=== PATIENT | female | born 1955 | race Caucasian/White ===

== ENCOUNTER → 2016-05-16 | Outpatient (CLI) | payer OTHER ==
[~2016-05-16] MED LIST: HYDROCHLOROTH12.5 M1 PO
== END | disposition home or self-care (01) ==
LOC: NUC 12:36
DX: R10.11 Right upper quadrant pain (principal)
CPT/HCPCS: 78227; A9510; J2805

== ENCOUNTER 2016-08-26 07:25 | Emergency (ER) | payer OTHER ==
[~2016-08-26] VITALS: Ht 160 cm; Wt 104.9 kg
[2016-08-26 08:22] LABS: EOSINOPHIL (%) 0.8 % (0-5); EOSINOPHIL COUNT 0.1 K/uL (0-0.3); HEMATOCRIT 43.2 % (36.0-46.0); IMMATURE GRANULOCYTE (%) 0.4 % (0.0-0.7); INSTRUMENT ABS NEUTROPHIL CT 8.2 K/uL; LYMPHOCYTE COUNT 1.6 K/uL (1.0-2.8); MCH 29.9 PG (29.0-34.0); MCHC 33.8 G/DL (30.0-36.0); MCV 88.3 FL (83-99); MEAN PLAT.VOLUME 9.9 uM^3 (9.5-12.4); MONOCYTE (%) 7.7 % (3-12); MONOCYTE COUNT 0.8 K/uL (0-0.8); NEUTROPHIL (%) 75.9 % (45-76); NEUTROPHIL COUNT 8.2 K/uL (1.8-6.4); PLATELET COUNT 171 K/uL (156-360); RBC DIS.WIDTH-CV 12.5 % (11.8-14.6); RBC DIS.WIDTH-SD 40.1 % (39-53); RED BLOOD COUNT 4.89 M/uL (3.80-5.20); WHITE BLOOD COUNT 10.8 K/uL (4.1-10.2)
[2016-08-26 08:36] LABS: CHLORIDE 106 mEq/L (99-109); SODIUM 141 mEq/L (136-147)
[2016-08-26 08:39] LABS: GLUCOSE 102 mg/dL (70-99)
[2016-08-26 08:40] LABS: ANION GAP 10 MEQ/L (2-14)
[2016-08-26 08:41] LABS: TOTAL BILIRUBIN 0.6 mg/dL (0.0-1.0)
[2016-08-26 08:42] LABS: ALKALINE PHOSPHATASE 84 IU/L (3-129); GFR ESTIMATE (CALCULATED) > 59 mL/min/
[2016-08-26 08:44] LABS: UREA NITROGEN (BUN) 12 mg/dL (9-23)
[2016-08-26 09:29] LABS: ADD MIUA? YES; BILIRUBIN NEGATIVE; BLOOD NEGATIVE; COLOR YELLOW ((YELLOW)); GLUCOSE (STRIP) NEGATIVE; KETONES NEGATIVE; LEUKOCYTES TRACE; NITRITE NEGATIVE; PROTEIN (STRIP) NEGATIVE; SPECIFIC GRAVITY 1.012 (1.000-1.030); UROBILINOGEN 0.2 MG/DL (0.2-1.0)
[2016-08-26 09:48] LABS: BACTERIA NONE SEEN /HPF; EPITHELIAL CELLS 1+ /HPF; GRANULAR CASTS 0-5 /LPF; MUCUS TRACE /LPF; RED BLOOD CELLS 0-5 /HPF (0-5); UCUL ADDED? NO
[2016-08-26 10:20] VITALS: BP 119/67
[2016-08-26] MEDS ORDERED: CIPRO500 MG PO (10:24)
[2016-08-26] MEDS ORDERED: PERCOCET 5/31 TABLET PO (10:24)
[2016-08-26] MEDS ORDERED: FLAGYL500 MG PO (10:24)
[2016-08-26] MEDS ORDERED: ZOFRAN ODT4 MG PO (10:24)
== END 2016-08-26 10:59 | disposition home or self-care (01) ==
LOC: EME 07:25
PROVIDERS: Emergency Medicine
DX: K57.32 Diverticulitis of large intestine without perforation or abscess without bleeding (principal); Z87.891 Personal history of nicotine dependence; I10 Essential (primary) hypertension; Z88.1 Allergy status to other antibiotic agents; Z88.5 Allergy status to narcotic agent; Z88.0 Allergy status to penicillin
CPT/HCPCS: 74177; 80053; 81003; 85025; 86900; 86901; 99281; 99284; J2270; J2405; J7030